=== PATIENT | female | born 1945 | race Hispanic/Latino ===

== ENCOUNTER 2019-01-12 10:14 | Emergency (ER) | payer OTHER ==
[2019-01-12] MEDS ORDERED: IOHEXOL 350 MG/ML 100ML INFUS..BTL IV ONE (11:08)
[2019-01-12 11:27] LABS: EOSINOPHILS % (AUTO) 1.3 % (0.0-8.0); HEMATOCRIT 39.3 % (36-48); LYMPHOCYTES % (AUTO) 28.5 % (21.0-51.0); MEAN CORPUSCULAR HEMOGLOBIN 30.6 pg (27.0-33.0); MEAN CORPUSCULAR HGB CONC 35.1 g/dL (32.0-36.0); MEAN CORPUSCULAR VOLUME 87.2 fL (79-99); MONOCYTES % (AUTO) 6.8 % (3.0-13.0); NEUTROPHILS % (AUTO) 62.4 % (40.0-77.0); NUCLEATED RED BLOOD CELLS 0.1 % (0.0-0.19); PLATELET COUNT (AUTO) 215 K/uL (130-400); RED BLOOD CELL COUNT(AUTO) 4.51 MIL/uL (4.00-5.50); RED CELL DISTRIBUTION WIDTH 12.9 % (11.0-15.5); WHITE BLOOD COUNT (AUTO) 6.2 K/uL (4.8-10.8)
[2019-01-12 11:32] LABS: CREATININE 0.9 mg/dL (0.5-1.5); POTASSIUM 3.4 mmol/L (3.5-5.1)
[2019-01-12 11:37] LABS: ALBUMIN 3.9 g/dL (3.5-5.0); BILIRUBIN,DIRECT 0.1 mg/dL (0.0-0.3); BILIRUBIN,TOTAL 0.4 mg/dL (0.2-1.0); TOTAL PROTEIN, SERUM 7.3 g/dL (6.0-8.3)
== END 2019-01-12 13:38 | disposition home or self-care (01) ==
LOC: EDH 10:14
DX: S13.9XXA Sprain of joints and ligaments of unspecified parts of neck, initial encounter (principal); S33.5XXA Sprain of ligaments of lumbar spine, initial encounter; V49.49XA Driver injured in collision with other motor vehicles in traffic accident, initial encounter; Y93.89 Activity, other specified; Y92.89 Other specified places as the place of occurrence of the external cause; Y99.8 Other external cause status
CPT/HCPCS: 36415; 70450; 71260; 72125; 74177; 80048; 80076; 82550; 83690; 84484; 85025; 93005; 99285; Q9967